=== PATIENT | male | born 1975 | race Caucasian/White ===

== ENCOUNTER 2017-12-02 17:51 | Emergency (ER) | payer MEDICAID ==
[2017-12-02 18:01] VITALS: BP 126/79
--- NOTE | 2017-12-02 18:39 | EDPHY ---
H & P Time Seen by Provider: 12/02/17 17:58 HPI/ROS: CHIEF COMPLAINT: Congestion, sinus drainage, sore throat HISTORY OF PRESENT ILLNESS: Patient states he has had almost 2 weeks of congestion, sinus drainage, mild cough. Some sore throat as well. Family members ill with similar. He denies fevers, chest pain, shortness of breath. No nausea vomiting or diarrhea. No rashes. He has been taking multiple over- the-counter medications with some but minimal relief. Has not seen his primary care physician. REVIEW OF SYSTEMS: Negative except per HPI. General Appearance: Alert, no distress. Eyes: Pupils equal and round no icterus ENT: Oropharynx erythematous without exudate. Uvula nonedematous. Respiratory: No respiratory distress Neurological: Awake, alert, no focal deficits. Skin: Warm and dry, no rashes. Musculoskeletal: Neck is supple nontender. Extremities are symmetrical, full range of motion, no edema. Psychiatric: Patient is oriented X 3, there is no agitation. Medical/surgical history: TIA, back surgery 2008. Laparotomy for bowel obstruction. Social history: Nonsmoker. Primary care Dr. Holloway Smoking Status: Never smoked Constitutional: Initial Vital Signs Temperature (C) 36.4 C 12/02/17 17:58 Heart Rate 85 12/02/17 17:58 Respiratory Rate 18 12/02/17 17:58 Blood Pressure 126/79 H 12/02/17 17:58 O2 Sat (%) 96 12/02/17 17:58 O2 Delivery Mode Room Air Allergies/Adverse Reactions: cyclobenzaprine HCl [From Flexeril] Allergy (Verified 12/02/17 17:57) Home Medications: Medication Instructions Recorded Aspirin 81mg (OTC) 01/23/16 Multivitamin 05/03/16 Medical Decision Making Differential Diagnosis: Differential diagnosis includes but is not limited to strep pharyngitis, sinusitis, bronchitis, pneumonia. After evaluation suspect viral upper respiratory infection although may be component of seasonal allergies. Discussed continued [id number] treatments and indications to return to the emergency department. Patient afebrile, non hypoxic, well-appearing. Also discussed why no antibiotics indicated at this time. Stable for discharge. Departure - Departure Disposition: Home, Routine, Self-Care Clinical Impression: Upper respiratory infection, viral Condition: Good Instructions: Upper Respiratory Infection (ED) Additional Instructions: Continue weight you're doing with the Claritin and Flonase as well as the sinus flushing as we discussed. He can also try pseudoephedrine [id number]. Stay well hydrated. If you develop fevers, worsening cough or shortness of breath you should return to the emergency department or see your primary care physician. Referrals: Addy Holloway MD [Primary Care Provider] - As per Instructions
== END 2017-12-02 18:50 | disposition home or self-care (01) ==
LOC: CED 17:51
DX: J06.9 Acute upper respiratory infection, unspecified (principal)